=== PATIENT | female | born 1990 | race Native Hawaiian/Other Pacific Islander ===

== ENCOUNTER 2019-04-28 15:39 | Emergency (ER) | payer OTHER ==
[~2019-04-28] VITALS: Ht 152.4 cm; Wt 58.4 kg
[2019-04-28] MEDS ORDERED: PREN1TAB11 PO (15:48)
[2019-04-28 16:29] LABS: BASO % 0.2 % (0.0-1.0); EOS # 0.2 10^3/uL (0.0-0.50); EOS % 1.7 % (0.0-3.0); HEMATOCRIT 33.8 % (36.0-47.0); HEMOGLOBIN 11.6 g/dl (12.0-15.5); LYMPH % 22.4 % (24.0-44.0); MEAN CORPUSCULAR HEMOGLOBIN 31.5 pg (27.0-33.0); MEAN CORPUSCULAR HGB CONC 34.3 g/dl (32.0-36.5); MEAN CORPUSCULAR VOLUME 91.8 fl (80.0-96.0); MONO # 0.8 10^3/uL (0.0-0.8); NEUTROPHILS % 66.1 % (36.0-66.0); PLATELET COUNT, AUTOMATED 292 10^3/uL (150-450); RED BLOOD COUNT 3.68 10^6/uL (4.00-5.40)
[2019-04-28 17:08] LABS: BLOOD UREA NITROGEN 14 MG/DL (7-18); CALCIUM LEVEL 8.8 MG/DL (8.5-10.1); CARBON DIOXIDE LEVEL 23 MEQ/L (21-32); CHLORIDE LEVEL 107 MEQ/L (98-107); CREATININE FOR GFR 0.52 MG/DL (0.55-1.30); GLOMERULAR FILTRATION RATE > 60.0 (>60); GLUCOSE, FASTING 88 MG/DL (70-100); HCG, SERUM QUANTITATIVE 34951 MIU/ML; POTASSIUM SERUM 4.2 MEQ/L (3.5-5.1); SODIUM LEVEL 137 MEQ/L (136-145)
[2019-04-28 17:44] VITALS: BP 117/70
--- NOTE | 2019-04-29 08:56 | REP ---
REASON: Vaginal bleeding. PRIORS: None. Multiple ultrasonographic images of the gravid uterus show a single living intrauterine gestation with a mean crown-rump length measurement consistent with a 13 week 0 day gestational age. Based on that the estimated date of delivery is 11/03/2019. Doppler interrogation of the heart shows a heart rate of 173 beats per minute. No chorionic or subchorionic abnormality was noted. Evaluation of the maternal adnexal spaces showed no gross abnormalities. IMPRESSION: Early OB ultrasound as described above. Electronically Signed by Rj Winston DO 04/29/2019 09:49 A
== END 2019-04-28 17:53 | disposition home or self-care (01) ==
LOC: M ED 15:39
DX: O20.9 Hemorrhage in early pregnancy, unspecified (principal); O34.81 Maternal care for other abnormalities of pelvic organs, first trimester; N83.201 Unspecified ovarian cyst, right side; O26.891 Other specified pregnancy related conditions, first trimester; M54.5 Low back pain; Z3A.13 13 weeks gestation of pregnancy

== ENCOUNTER → 2019-05-13 | Outpatient (CLI) | payer OTHER ==
[~2019-05-13] MED LIST: PREN1TAB11 PO
[2019-05-13 11:44] LABS: BASO % 0.4 % (0.0-1.0); EOS # 0.1 10^3/uL (0.0-0.50); EOS % 1.1 % (0.0-3.0); HEMATOCRIT 34.5 % (36.0-47.0); HEMOGLOBIN 11.8 g/dl (12.0-15.5); LYMPH # 1.7 10^3/uL (1.5-6.5); MEAN CORPUSCULAR HEMOGLOBIN 30.9 pg (27.0-33.0); MEAN CORPUSCULAR HGB CONC 34.2 g/dl (32.0-36.5); MEAN CORPUSCULAR VOLUME 90.3 fl (80.0-96.0); MONO # 0.6 10^3/uL (0.0-0.8); NEUTROPHILS # 5.5 10^3/uL (1.8-7.7); NEUTROPHILS % 68.3 % (36.0-66.0); PLATELET COUNT, AUTOMATED 300 10^3/uL (150-450); RED BLOOD COUNT 3.82 10^6/uL (4.00-5.40)
[2019-05-13 12:35] LABS: HEPATITIS C VIRUS ABY INDEX 0.1 INDEX (<0.8); HIV 1&2 SCREEN CENTAUR NEGATIVE (NEGATIVE); RUBELLA IgG QUALITATIVE IMMUNE (IMMUNE)
[2019-05-13 14:03] LABS: CHLAMYDIA DNA AMPLIFICATION NEGATIVE (NEGATIVE); GC DNA AMPLIFICATION NEGATIVE (NEGATIVE)
== END ==
LOC: M SMT 09:34
PROVIDERS: ATTEND Advanced Practice Midwife
DX: Z34.02 Encounter for supervision of normal first pregnancy, second trimester (principal); Z3A.16 16 weeks gestation of pregnancy

== ENCOUNTER → 2019-06-10 | Outpatient (CLI) | payer OTHER ==
--- NOTE | 2019-06-11 02:45 | REP ---
Clinical: Anatomical evaluation. Comparison: 04/28/2019 . Findings: Examination demonstrates a single live intrauterine in cephalic presentation. motion is identified by technologist. Placenta is noted right lateral and grade zero without evidence for placenta previa or abruption. Amniotic fluid volume is normal. Cervix measures 3.1 cm in length and appears closed. No evidence for nuchal cord. Gestational age by LMP 19 weeks 5 days with ADRIANA 10/30/2019 . Gestational age by current measurements 19 weeks 3 days with ADRIANA 11/01/2019 . FHR equals 146 beats per minute. BPD 4.6 cm 20 weeks 0 days HC 16.3 cm 19 weeks 0 days AC 14.2 cm 19 weeks 4 days FL 3.1 cm 90 weeks 4 days HL 2.9 cm 19 weeks 2 days HC/AC ratio 1.15 Estimated weight I have 296 grams ( 39 percentile). Anatomical assessment demonstrates normal structures including cranium, choroid plexus, cavum, cerebellum/posterior fossa, nose/lips, lungs, diaphragm, stomach, cord insertion/three-vessel cord, kidneys/bladder, spine, and extremities. Limited evaluation of the facial profile and heart/ventricular outflow tracts. Impression: 1. Single live intrauterine in cephalic presentation demonstrating appropriate interval growth. 2. Limited evaluation of the facial profile and heart/ventricular outflow tracts may warrant reevaluation and follow-up. Electronically Signed by Kunal Wills MD 06/11/2019 02:36 A
== END ==
LOC: M RAD 12:21
PROVIDERS: ATTEND Advanced Practice Midwife
DX: Z34.02 Encounter for supervision of normal first pregnancy, second trimester (principal); Z36.89 Encounter for other specified antenatal screening; Z3A.19 19 weeks gestation of pregnancy

== ENCOUNTER → 2019-07-10 | Outpatient (CLI) | payer OTHER ==
--- NOTE | 2019-07-10 19:48 | REP ---
HISTORY: Followup anatomy. COMPARISON: Prior examination failed to optimally visualize facial features, left ventricular outflow tract, and four chamber heart. Multiple ultrasonographic images of the gravid uterus show a single living intrauterine gestation in the cephalic presentation. Doppler interrogation of the heart shows a heart rate of 160 beats per minute. The placenta is anterior, but predominantly right lateral and not low lying. The subjective amniotic fluid volume is within normal limits. The cervix measures 4.6 cm in length and is closed. BPD 5.9 cm = 24 weeks 1 day HC 20.9 cm = 23 weeks 0 days AC 18.8 cm = 23 weeks 4 days FL 4.2 cm = 23 weeks 4 days Estimated weight is 602 grams, which is at the 31st percentile for 24 weeks 0 day gestational age. Today's examination shows facial features, four chamber heart, and left ventricular outflow tract to be within normal limits. Additional to those features, all other anatomical features even the ones seen on prior examination 06/10/2019 were additionally shown to be within normal limits. IMPRESSION: Single living intrauterine gestation as described above with an estimated gestational age of 23 weeks 6 days via composite criteria and an estimated date of delivery of 10/31/2019 by today's examination. No anomalies were detected. Electronically Signed by Rj Winston DO 07/13/2019 02:51 P
== END ==
LOC: M RAD 08:58
PROVIDERS: ATTEND Advanced Practice Midwife
DX: Z34.02 Encounter for supervision of normal first pregnancy, second trimester (principal); Z36.89 Encounter for other specified antenatal screening; Z3A.23 23 weeks gestation of pregnancy

== ENCOUNTER → 2019-08-10 | Outpatient (CLI) | payer OTHER ==
[2019-08-10 13:31] LABS: HEMATOCRIT 32.7 % (36.0-47.0); HEMOGLOBIN 10.8 g/dl (12.0-15.5); MEAN CORPUSCULAR HEMOGLOBIN 31.8 pg (27.0-33.0); MEAN CORPUSCULAR VOLUME 96.2 fl (80.0-96.0); PLATELET COUNT, AUTOMATED 302 10^3/uL (150-450); WHITE BLOOD COUNT 9.8 10^3/uL (4.0-10.0)
== END ==
LOC: M SMT 08:02
PROVIDERS: ATTEND Obstetrics & Gynecology
DX: Z34.02 Encounter for supervision of normal first pregnancy, second trimester (principal); Z36.89 Encounter for other specified antenatal screening

== ENCOUNTER → 2019-10-01 | Outpatient (REF) | payer OTHER | LOC: M SFHCWAGY 13:06 | PROVIDERS: ATTEND Advanced Practice Midwife | DX: Z34.03 Encounter for supervision of normal first pregnancy, third trimester (principal); Z36.85 Encounter for antenatal screening for Streptococcus B ==

== ENCOUNTER → 2019-10-05 | Outpatient (CLI) | payer OTHER ==
--- NOTE | 2019-10-06 02:09 | REP ---
Clinical: Growth evaluation. Comparison: 07/10/2019 . Findings: Examination demonstrates a single live intrauterine in cephalic presentation. motion is identified by technologist. Placenta is noted right/fundal and grade zero without evidence for placenta previa or abruption. Amniotic fluid volume is normal. Cervix appears closed. No evidence for nuchal cord. Gestational age by LMP 36 weeks 3 days with ADRIANA 10/30/2019 . Gestational age by current measurements 35 weeks 6 days with ADRIANA 11/03/2019 . FHR equals 160 beats per minute. BPD 8.9 cm 36 weeks 0 days HC 33.0 cm 37 weeks 4 days AC 31.0 cm 35 weeks 0 days FL 7.0 cm 35 weeks 5 days HC/AC ratio 1.06 Estimated weight 2706 grams ( 37 percentile). Amniotic fluid index: 17.9 cm (7.6 - 24.7) Umbilical cord SD ratio: 2.93 Impression: Single live advanced gestation in cephalic presentation demonstrating appropriate interval growth. Electronically Signed by Kunal Wills MD 10/06/2019 02:01 A
== END ==
LOC: M LRY 08:10
PROVIDERS: ATTEND Advanced Practice Midwife
DX: O26.843 Uterine size-date discrepancy, third trimester (principal); Z3A.36 36 weeks gestation of pregnancy

== ENCOUNTER → 2019-10-14 | Outpatient (CLI) | payer OTHER | LOC: M PLALAB 15:50 | PROVIDERS: ATTEND Advanced Practice Midwife | DX: Z34.03 Encounter for supervision of normal first pregnancy, third trimester (principal) ==

== ENCOUNTER 2019-11-02 02:11 | Inpatient (IN) | payer OTHER ==
[~2019-11-02] VITALS: Ht 152.4 cm; Wt 66.2 kg
[2019-11-02] VITALS (7 sets, daily range): BP systolic 99–135; BP diastolic 54–83
[2019-11-02] MEDS ORDERED: OXYTOCIN 30 UNITS IN 0.9% NaCl 500ML IV BAG (J2590) As Ordered ONE (02:37)
[2019-11-02 04:25] LABS: HEMATOCRIT 38.4 % (36.0-47.0); HEMOGLOBIN 12.7 g/dl (12.0-15.5); MEAN CORPUSCULAR HEMOGLOBIN 30.3 pg (27.0-33.0); MEAN CORPUSCULAR HGB CONC 33.1 g/dl (32.0-36.5); MEAN CORPUSCULAR VOLUME 91.6 fl (80.0-96.0); PLATELET COUNT, AUTOMATED 294 10^3/uL (150-450); RED BLOOD COUNT 4.19 10^6/uL (4.00-5.40); WHITE BLOOD COUNT 13.5 10^3/uL (4.0-10.0)
[2019-11-02] MEDS ORDERED: LR 1,000 ML IV SCH ×2 (04:41→04:42)
[2019-11-02] MEDS ORDERED: LACTATED RINGER'S 1000 ML IV STA (04:41)
[2019-11-02] MEDS ORDERED: OXYTOCIN DRIP 30 UNITS in IV 1 EA IV SCH (04:42)
[2019-11-02] MEDS ORDERED: LIDOCAINE 1% MDV 20ML VIAL INFIL ONE (04:45)
[2019-11-02] MEDS ORDERED: IBUPROFEN 800 MG TAB PO PRN (04:45)
[2019-11-02] MEDS ORDERED: ONDANSETRON 4MG/2ML VIAL (J2405) IV PRN (04:45)
[2019-11-02] MEDS ORDERED: ACETAMINOPHEN 500 MG TAB PO PRN (04:45)
[2019-11-02] MEDS ORDERED: ACETAMINOPHEN TAB 650MG DOSE (2X325MG) PO PRN (04:45)
[2019-11-02] MEDS ORDERED: DOCUSATE SODIUM 100 MG CAP PO PRN (04:45)
[2019-11-02] MEDS ORDERED: PROMETHAZINE 25 MG TAB PO PRN (04:45)
[2019-11-02] MEDS ORDERED: RHOGAM 300 MCG (1500 IU) INJ (J2790) IM SCH (04:45)
[2019-11-02] MEDS ORDERED: MEASLES,MUMPS,RUBELLA VACCINE INJ (MMR-II) (90707) SC SCH (04:45)
[2019-11-02] MEDS: IBUPROFEN 600 MG TAB PO PRN ×2 (06:28→20:23)
[2019-11-02] MEDS: DIBUCAINE 1% OINTMENT 30GM TOP PRN (06:28)
[2019-11-02] MEDS: PRENATAL VITAMINS CHEWABLE TABLET PO SCH (07:40)
[2019-11-03 06:00] VITALS: BP 109/57
--- NOTE | 2019-11-03 08:08 | IPNPDOC ---
Progress Note Date of Service: Nov 03, 2019 Day#: 1 Progress Note SUBJECT: She has been ambulating, voiding spontaneously without issue and tole rating regular diet. Breast feeding without issue. OBJECTIVE: VITAL SIGNS: Within normal limits, afebrile. Alert and oriented times three. Breath sounds clear to auscultation. Heart rate: Regular rate and rhythm, no murmurs, rubs or gallops. Abdomen: Fundus firm at U-1. Soft, NTTP. Minimal lochia. ASSESSMENT: Day 1 PLAN: 1. Continue supportive nursing care and breast feeding support. 2. Anticipate discharge to home tomorrow. VS, I&O, 24H, Fishbone Vital Signs/I&O Vital Signs Date Time Temp Pulse Resp B/P (MAP) Pulse Ox O2 Delivery O2 Flow Rate FiO2 11/03/19 06:00 98.3 82 16 109/57 (74) 11/02/19 06:45 100 I&O- Last 24 Hours up to 6 AM 11/03/19 06:00 Output Total 500 ml Balance -500 ml ADRI PHILIPPE CNM Nov 03, 2019 08:08
[2019-11-03] MEDS ORDERED: INFLUENZA QUADRIVALENT PF VACCINE 0.5ML SYRINGE (90686) IM ONE (09:00)
[2019-11-03] MEDS: PRENATAL VITAMINS CHEWABLE TABLET PO SCH (09:41)
[2019-11-03] MEDS: IBUPROFEN 600 MG TAB PO PRN ×2 (12:00→23:04)
[2019-11-03 18:08] VITALS: BP 113/63
[2019-11-04 06:00] VITALS: BP 112/66
[2019-11-04] MEDS: DIBUCAINE 1% OINTMENT 30GM TOP PRN (08:01)
[2019-11-04] MEDS: PRENATAL VITAMINS CHEWABLE TABLET PO SCH (08:02)
== END 2019-11-04 12:05 | disposition home or self-care (01) | DRG 807 ==
LOC: M LDO 02:11 → M LDI 02:33 → M OBS 06:03
PROVIDERS: ADMIT Obstetrics & Gynecology; ATTEND Obstetrics & Gynecology
PROC: 10E0XZZ Delivery of Products of Conception, External Approach (ICD-10-PCS; principal; 2019-11-02)
PROC: 0KQM0ZZ Repair Perineum Muscle, Open Approach (ICD-10-PCS; 2019-11-02)
DX: O48.0 Post-term pregnancy (principal); Z37.0 Single live birth; Z3A.40 40 weeks gestation of pregnancy; O70.1 Second degree perineal laceration during delivery

== ENCOUNTER → 2020-06-06 | Outpatient (CLI) | payer OTHER ==
[2020-06-06 14:19] LABS: HEMATOCRIT 35.5 % (36.0-47.0); HEMOGLOBIN 11.9 g/dl (12.0-15.5); MEAN CORPUSCULAR HEMOGLOBIN 30.2 pg (27.0-33.0); MEAN CORPUSCULAR HGB CONC 33.5 g/dl (32.0-36.5); MEAN CORPUSCULAR VOLUME 90.1 fl (80.0-96.0); PLATELET COUNT, AUTOMATED 360 10^3/uL (150-450); RED BLOOD COUNT 3.94 10^6/uL (4.00-5.40); WHITE BLOOD COUNT 4.6 10^3/uL (4.0-10.0)
== END ==
LOC: M PLALAB 12:31
PROVIDERS: ATTEND Obstetrics & Gynecology
DX: Z12.4 Encounter for screening for malignant neoplasm of cervix (principal); R68.89 Other general symptoms and signs
CPT/HCPCS: 36415; 84443; 85027; G0123

== ENCOUNTER → 2020-06-06 | Outpatient (REF) | payer OTHER | LOC: M SFHCWAGY 16:57 | PROVIDERS: ATTEND Obstetrics & Gynecology | DX: Z12.4 Encounter for screening for malignant neoplasm of cervix (principal) ==

== ENCOUNTER → 2020-07-13 | Outpatient (CLI) | payer OTHER ==
--- NOTE | 2020-07-14 08:39 | REP ---
INDICATION: OVARIAN CYST COMPARISON: None. TECHNIQUE: Transabdominal pelvic ultrasound followed by transvaginal examination for better evaluation of the endometrium and adnexa with color Doppler evaluation of the ovaries. FINDINGS: Bladder is collapsed Normal retroverted uterus measures 6.4 x 3.5 x 4.7 cm. The endometrial complex measures 2.2 mm thickness. Bilateral ovaries are normal in appearance and vascularity without evidence for torsion. Right ovary measures 3.1 x 1.1 x 2.5 cm; R I = 0.56. Left ovary measures 2.6 x 1.2 x 2.2 cm; R I = 0.41. Trace physiologic pelvic free fluid. IMPRESSION: Normal uterus and ovaries. No torsion. No significant ovarian cystic changes. <Electronically signed by Kunal Wills > 07/14/20 [id number]
== END ==
LOC: M WHC 13:14
PROVIDERS: ATTEND Obstetrics & Gynecology
DX: Z87.42 Personal history of other diseases of the female genital tract (principal); Q52.5 Fusion of labia

== ENCOUNTER → 2021-06-14 | Outpatient (REF) | payer OTHER | LOC: M SFHCWAGY 14:15 | PROVIDERS: ATTEND Obstetrics & Gynecology | DX: Z12.4 Encounter for screening for malignant neoplasm of cervix (principal) | CPT/HCPCS: 87624; G0123; G0463 ==

== ENCOUNTER → 2021-09-14 | Outpatient (CLI) | payer OTHER ==
--- NOTE | 2021-09-14 14:20 | REP ---
INDICATION: CHRONIC COUGH. COMPARISON: None. TECHNIQUE: PA and lateral FINDINGS: The superior mediastinal structures are midline. The cardiac silhouette is unremarkable in size, shape, and position. The diaphragmatic surfaces of the lungs are regular, and the costophrenic angles are clear. The pulmonary cook are clear. The imaged osseous structures are intact. IMPRESSION: There is no acute cardiopulmonary disease. If the patient is experiencing a chronic cough consider contrast-enhanced CT <Electronically signed by Rj Winston > 09/14/21 [id number]
== END ==
LOC: M PLAIMG 13:30
PROVIDERS: ATTEND Family Medicine
DX: R05.3 Chronic cough (principal)

== ENCOUNTER → 2021-09-20 | Outpatient (CLI) | payer OTHER ==
[~2021-09-20] MED LIST changes: +ISOVUE-370 76% 100ML VIAL ONE
== END ==
LOC: M PLAIMG 09:10
PROVIDERS: ATTEND Family Medicine
DX: R05.3 Chronic cough (principal)

== ENCOUNTER → 2021-09-25 | Outpatient (CLI) | payer OTHER ==
[~2021-09-25] MED LIST changes: -ISOVUE-370 76% 100ML VIAL ONE
== END ==
LOC: M WHC 14:41
PROVIDERS: ATTEND Physician Assistant
DX: Z80.3 Family history of malignant neoplasm of breast (principal); R92.2 Inconclusive mammogram